=== PATIENT | female | born 1955 | race Caucasian/White ===

== ENCOUNTER → 2018-02-02 07:15 | Outpatient (CLI) | payer BC, SELFPAY ==
[2018-02-02 13:38] LABS: Basophils # 0.1 K/mm3 (0-0.2); Basophils % 0.7 % (0.1-2.0); Eosinophils # 0.3 K/mm3 (0.0-0.4); Eosinophils % 3.7 % (0.1-12.0); Hematocrit 44.3 % (37.0-47.0); Hemoglobin 13.8 g/dL (12.2-16.2); Lymphocytes # 3.2 K/mm3 (0.7-4.5); Lymphocytes % 37.2 K/mm3 (10-50); Mean Corpuscular HGB Conc 31.1 g/dL (31.8-35.4); Mean Corpuscular Hemoglobin 29.5 pg (27.0-31.2); Mean Corpuscular Volume 94.7 fl (81-99); Mean Platelet Volume 7.9 fl (7.4-10.4); Monocytes # 0.4 K/mm3 (0.1-1.0); Neutrophils # 4.6 K/mm3 (1.8-7.8); Neutrophils % 53.4 % (37.0-80.0); Platelet Count 335 K/mm3 (142-424); Red Blood Count 4.67 M/mm3 (4.20-5.40); Red Cell Distribution Width 13.5 % (11.5-17.5); White Blood Count 8.7 K/mm3 (4.8-10.8)
[2018-02-02 13:45] LABS: Albumin Level 3.7 gm/dL (3.4-5.0); Blood Urea Nitrogen 14 mg/dL (7-18); Calcium 10.2 mg/dL (8.5-10.1); Carbon Dioxide 26 mmol/L (21.0-32.0); Chloride 104 mmol/L (98-107); Creatinine,Serum 1.21 mg/dL (0.55-1.02); Estimated Glomerular Filt Rate 45 ml/min (>60); GFR (African American) 55 ML/MIN (>60); Glucose 103 mg/dL (74-106); Phosphorous 2.9 mg/dL (2.4-4.9); Sodium 141 mmol/L (136-145)
== END ==
PROVIDERS: PCP Physician Assistant
DX: N18.9 Chronic kidney disease, unspecified (principal)
CPT/HCPCS: 36415; 80069; 85025

== ENCOUNTER → 2018-02-03 07:02 | Outpatient (CLI) | payer BC, SELFPAY ==
[2018-02-03 07:08] LABS: Microscopic, Urine URINE MICROSCOPIC (MICROSCOPIC)
[2018-02-03 13:57] LABS: Appearance,Urine CLEAR (Clear); Bilirubin,Urine Negative (Negative); Blood, Urine Negative (Negative); Color,Urine YELLOW (Yellow); Glucose,Urine (UA) Negative (Negative); Ketones,Urine Negative (Negative); Leukocyte Esterase,Urine Negative (Negative); Nitrate,Urine Negative (Negative); Protein,Urine Negative (Negative); Specific Gravity, Urine 1.025 (1.005-1.030); Urobilinogen,Urine 0.2 EU/dl (0.2)
[2018-02-03 14:09] LABS: Creatinine,Urine Random 131 mg/dL (20-320); Total Protein,Urine Random 13.8 mg/dL (0.0-11.9)
[2018-02-03 14:16] LABS: Bacteria,Urine 1+ /lpf; Calcium Oxalate Crystals,Urine 1+ /lpf; WBC,Urine Occasional #/hpf (0-3)
== END ==
DX: N18.9 Chronic kidney disease, unspecified (principal)
CPT/HCPCS: 81001; 82570; 84155

== ENCOUNTER → 2018-03-09 14:26 | Outpatient (CLI) | payer BC, SELFPAY ==
--- NOTE | 2018-03-09 14:32 | US_ITS ---
US kidney retroperitoneal comp HISTORY: ITS.REASON: CKD STAGE 3 ORDERING PHYSICIAN: Lillian Joseph PATIENT AGE: 62 years Comparison: None FINDINGS: RIGHT KIDNEY:10 x 3.6 x 6.4 cm. Mild cortical thinning. No hydronephrosis. Unremarkable echogenicity LEFT KIDNEY:11 x 4 x 5.8 cm. Cortical thinning. No hydronephrosis. Unremarkable echogenicity OTHER FINDINGS: No renal mass or perinephric fluid collection bilateral renal blood flow noted IMPRESSION: Bilateral renal cortical thinning. No hydronephrosis
== END ==
PROVIDERS: PCP Physician Assistant; Visit Provider Internal Medicine Nephrology
DX: N18.3 Chronic kidney disease, stage 3 (moderate) (principal)
CPT/HCPCS: 76770

== ENCOUNTER → 2018-04-06 07:05 | Outpatient (CLI) | payer BC, SELFPAY ==
[2018-04-06 07:16] LABS: Microscopic, Urine URINE MICROSCOPIC (MICROSCOPIC)
[2018-04-06 13:34] LABS: Basophils # 0.1 K/mm3 (0-0.2); Basophils % 0.6 % (0.1-2.0); Eosinophils # 0.3 K/mm3 (0.0-0.4); Eosinophils % 3.3 % (0.1-12.0); Hematocrit 40.6 % (37.0-47.0); Hemoglobin 12.8 g/dL (12.2-16.2); Lymphocytes # 2.9 K/mm3 (0.7-4.5); Lymphocytes % 33.3 K/mm3 (10-50); Mean Corpuscular HGB Conc 31.6 g/dL (31.8-35.4); Mean Corpuscular Hemoglobin 28.9 pg (27.0-31.2); Mean Corpuscular Volume 91.3 fl (81-99); Mean Platelet Volume 7.6 fl (7.4-10.4); Monocytes # 0.4 K/mm3 (0.1-1.0); Neutrophils # 4.9 K/mm3 (1.8-7.8); Neutrophils % 57.7 % (37.0-80.0); Platelet Count 347 K/mm3 (142-424); Red Blood Count 4.44 M/mm3 (4.20-5.40); Red Cell Distribution Width 13.9 % (11.5-17.5); White Blood Count 8.5 K/mm3 (4.8-10.8)
[2018-04-06 13:38] LABS: Creatinine,Urine Random 149 mg/dL (20-320); Total Protein,Urine Random 38.4 mg/dL (0.0-11.9)
[2018-04-06 13:43] LABS: Appearance,Urine CLOUDY (Clear); Bilirubin,Urine Negative (Negative); Blood, Urine 1+ (Negative); Color,Urine YELLOW (Yellow); Glucose,Urine (UA) Negative (Negative); Ketones,Urine Negative (Negative); Leukocyte Esterase,Urine 2+ (Negative); Nitrate,Urine POSITIVE (Negative); PH,Urine 5.5 (5.0-8.5); Protein,Urine TRACE (Negative); Specific Gravity, Urine 1.025 (1.005-1.030); Urobilinogen,Urine 0.2 EU/dl (0.2)
[2018-04-06 14:00] LABS: Albumin Level 3.3 gm/dL (3.4-5.0); Anion Gap 12.4 mEq/L (5-15); Blood Urea Nitrogen 18 mg/dL (7-18); Calcium 10.1 mg/dL (8.5-10.1); Carbon Dioxide 28 mmol/L (21.0-32.0); Chloride 107 mmol/L (98-107); Creatinine,Serum 1.18 mg/dL (0.55-1.02); Estimated Glomerular Filt Rate 46 ml/min (>60); GFR (African American) 56 ML/MIN (>60); Glucose 108 mg/dL (74-106); Phosphorous 2.8 mg/dL (2.4-4.9); Potassium 4.4 mmoL/L (3.5-5.1); Sodium 143 mmol/L (136-145)
[2018-04-06 14:07] LABS: Bacteria,Urine 2+ /lpf; WBC,Urine 50-100 #/hpf (0-3)
[2018-04-07 12:49] LABS: Parathyroid Hormone Intact 82 pg/mL (15-65); Vitamin D 25 Hydroxy 15.6 ng/mL (30.0-100.0)
[2018-04-08 03:37] LABS: Immunoglobulin A, Qn 528 mg/dL (87-352); Immunoglobulin G, Qn 1165 mg/dL (700-1600)
[2018-04-08 06:58] LABS: Immunoglobulin M, Qn 53 mg/dL (26-217)
== END ==
PROVIDERS: Visit Provider Hospitalist
DX: N18.9 Chronic kidney disease, unspecified (principal)
CPT/HCPCS: 36415; 80069; 81001; 82570; 82652; 82784; 83970; 84155; 84156; 84165; 85025; 87086; 87088; 87186

== ENCOUNTER → 2021-11-20 11:29 | Outpatient (CLI) | payer BC, SELFPAY ==
[2021-11-20 14:27] LABS: Intact Parathyroid Hormone 119.8 pg/mL (7.5-53.5)
[2021-11-20 14:34] LABS: Magnesium 1.7 mg/dl (1.6-2.3); Phosphorous 2.9 mg/dl (2.5-4.5)
[2021-11-21 17:10] LABS: Calcium, Ionized 6.4 mg/dL (4.5-5.6)
[2021-11-22 17:12] LABS: Calcitonin 43.8 pg/mL (0.0-5.0)
== END ==
PROVIDERS: Visit Provider Nurse Practitioner Family
DX: E83.52 Hypercalcemia (principal)
CPT/HCPCS: 36415; 82308; 82330; 83735; 83970; 84100

== ENCOUNTER 2022-07-29 09:00 | Outpatient (RCR) | payer BC, SELFPAY | END 2022-08-07 11:36 | disposition home or self-care (01) | LOC: PT.CARL 09:00 | PROVIDERS: Visit Provider Orthopaedic Surgery Adult Reconstructive Orthopaedic Surgery | DX: M25.561 Pain in right knee (principal) | CPT/HCPCS: 97010; 97014; 97033; 97110; 97112; 97163; 97164; 97530; G0283 ==

== ENCOUNTER 2022-08-07 08:00 | Outpatient (RCR) | payer BC, SELFPAY ==
--- NOTE | 2022-06-05 10:28 | HMH.PTOPEV ---
PT Outpatient Evaluation Rehab PT Outpatient Evaluation Start: 06/05/22 08:21 Freq: Status: Active Protocol: Document 06/05/22 08:21 ORION (Rec: 06/05/22 10:26 PDESEROUX [id number]) Electronically Signed By Negro Perez, PT 06/05/22 08:21 Outpatient Therapy Subjective History Subjective History Pt. is a 66 year old female who presents to [facility] Outpatient Physical Therapy Services in [place] for the initial evaluation this date( 06/05/22) w/ c's/o chronic and intermittent BLE(L>R) ankle/ ft. P!, weakness, and giving out of insidious onset that has gradually worsened over the last 6 months. Pt. reports symptoms worsen to a sharpness when she ambulates/ stands for a prolonged period time and w/ doing dishes at home. Pt. also reports having trouble negotiating stairs and inclines/declines secondary to P! and instability. Pt. reports having symptom relief w/ resting. Recent diagnostic imaging(radiograph) positive to bilateral osteophytes and possible plantarfasciitis per pt. report. Pt. denies having injections for current complaint. Pt. also reports if Physical Therapy did not provide symptom relief then Dr Pavan Varner would think about taking an MRI of both ankles when RTMD on 06/27/22. Pt. also reports Dr. Varner prescribed her braces to keep ankles in a DF position, but also w/ inserts in her shoes. Pt. reports she is going to [facility] tomorrow( 06/06/22) to have shoes fitted . Current medications include Diclofenac and Lisinopril. PMH includes Hypertension, history of OA, Hysterectomy, Appendectomy. Pt. denies hi
== END 2022-08-07 12:00 | disposition home or self-care (01) ==
LOC: PT 08:00
PROVIDERS: Visit Provider Podiatrist
DX: M76.62 Achilles tendinitis, left leg (principal); M76.61 Achilles tendinitis, right leg; M79.672 Pain in left foot; M79.671 Pain in right foot
CPT/HCPCS: 97010; 97014; 97033; 97035; 97110; 97112; 97163; 97164; G0283

== ENCOUNTER → 2022-09-18 11:03 | Outpatient (CLI) | payer BC, SELFPAY ==
--- NOTE | 2022-09-18 11:08 | MR_ITS ---
FINAL REPORT CLINICAL HISTORY: PAIN IN RIGHT KNEE FINDINGS: Multi planar MR imaging was performed of the left knee. The anterior cruciate ligament is rather gracile. The posterior cruciate ligament is intact. The quadriceps and patellar tendons are intact. There is a large tear in the posterior horn of the medial meniscus. The lateral meniscus is intact. The medial and lateral collateral ligaments appear intact. The medial and lateral retinacula appear intact. There are multiple small osteochondral lesions along the undersurface of the patella., particularly the lateral articular facet of the patella. There is are small cystic structures along the posterior aspect of the joint capsule measuring up to 1.2 cm in greatest dimension, may be related to small ganglion cysts. Finding is best seen on image 23 of series 3 No evidence of soft tissue inflammatory reaction. IMPRESSION: Large tear posterior horn medial meniscus. Multiple osteochondral lesions along the undersurface of the patella. Probable small ganglions as detailed above. Reviewed, Interpreted and Dictated by Arnaud Loco MD Transcribed by Yesenia Moreno Authenticated and [facility]
== END ==
PROVIDERS: PCP Family Medicine; Visit Provider Orthopaedic Surgery Adult Reconstructive Orthopaedic Surgery
DX: M25.561 Pain in right knee (principal)
CPT/HCPCS: 73721

== ENCOUNTER 2023-02-18 13:00 | Outpatient (RCR) | payer BC, SELFPAY | END 2023-02-28 12:15 | disposition home or self-care (01) | LOC: PT 13:00 | PROVIDERS: PCP Family Medicine; Visit Provider Orthopaedic Surgery Adult Reconstructive Orthopaedic Surgery | DX: S83.241D Other tear of medial meniscus, current injury, right knee, subsequent encounter (principal) | CPT/HCPCS: 97010; 97014; 97110; 97163; 97530; G0283 ==

== ENCOUNTER → 2023-06-12 08:47 | Outpatient (CLI) | payer BC, SELFPAY ==
--- NOTE | 2023-06-12 09:00 | XR_ITS ---
FINAL REPORT TECHNIQUE: Bone densitometry calculations of the lumbar spine and left hip were obtained. CLINICAL HISTORY: screening for osteoporosis FINDINGS: Using L1-4, the bone mineral density of the spine is 1.017 g/cm2, corresponding to T-score of -0.3. Using the left hip, the bone mineral density of the femoral neck is 0.853 g/cm2, corresponding to a T-score of -0.7. Using the right hip, the bone mineral density of the femoral neck is 0.783 g/cm2, corresponding to a T-score of -0.6. NOTE: T-score: Standard deviation compared with peak bone mass of young adult mean. *Following the recommendations of the International Society of Bone densitometry, classification of hip BMD is based on the lower of two T-scores; total hip or femoral neck. IMPRESSION: Normal bone mineral density of the lumbar spine and hips. Reviewed, Interpreted and Dictated by Arnaud Loco MD Transcribed by Yesenia Moreno Authenticated and [facility]
[2023-06-12 09:16] LABS: Basophils # 0.1 K/mm3 (0-0.2); Basophils % 0.7 % (0.1-2.0); Eosinophils # 0.2 K/mm3 (0.0-0.4); Eosinophils % 2.2 % (0.1-12.0); Hemoglobin 14.5 g/dL (12.2-16.2); Lymphocytes # 3.3 K/mm3 (0.7-4.5); Lymphocytes % 37.8 % (10-50); Mean Corpuscular HGB Conc 32.1 g/dL (31.8-35.4); Mean Corpuscular Hemoglobin 29.7 pg (27.0-31.2); Mean Corpuscular Volume 92.6 fl (81-99); Mean Platelet Volume 7.8 fl (7.4-10.4); Monocytes # 0.5 K/mm3 (0.1-1.0); Monocytes % 5.4 % (1.7-9.3); Neutrophils # 4.7 K/mm3 (1.8-7.8); Neutrophils % 53.9 % (37.0-80.0); Platelet Count 350 K/mm3 (142-424); Red Blood Count 4.86 M/mm3 (4.20-5.40); Red Cell Distribution Width 14.1 % (11.5-17.5); White Blood Count 8.8 K/mm3 (4.8-10.8)
--- NOTE | 2023-06-12 09:35 | MM_ITS ---
PROCEDURE INFORMATION: Exam: Bilateral Screening 3D Mammography Exam date and time: 06/12/2023 9:03 AM Age: 67 years old Clinical indication: Screening examination TECHNIQUE: Imaging protocol: Bilateral Screening tomosynthesis and 2D mammography including computer-aided detection (CAD) when performed. COMPARISON: Screening-Bilateral Mammography 05/31/2021 11:01 AM FINDINGS: MAMMOGRAPHY: Breast composition: There are scattered areas of fibroglandular density. Mass: None. Architectural distortion: None. Calcifications: No suspicious calcifications. Asymmetric density: None. Skin thickening: None. Axillary adenopathy: None. IMPRESSION: No mammographic evidence of malignancy. Annual screening is recommended unless otherwise clinically indicated. ASSESSMENT: BI-RADS Category 1: Negative
[2023-06-12 10:50] LABS: Alanine Aminotransferase 38 U/L (12-78); Albumin Level 4.5 g/dl (3.5-5.0); Albumin/Globulin Ratio 1.2 (1.1-1.8); Alkaline Phosphatase 144 U/L (38-126); Aspartate Amino Transferase 41 U/L (14-36); Bilirubin,Total 0.6 mg/dl (0.2-1.3); Blood Urea Nitrogen 26 mg/dl (7-17); Calcium 10.8 mg/dl (8.4-10.2); Carbon Dioxide 25 mmol/L (22.0-30.0); Chloride 104 mmol/L (98-107); Estimated Glomerular Filt Rate 38 ml/min (>60); GFR (African American) 45 ML/MIN (>60); Globulin 3.9 g/dL (1.3-3.2); Glucose 121 mg/dl (74-100); Sodium 141 mmol/L (136-145); Total Protein,Serum 8.4 g/dl (6.3-8.2)
[2023-06-12 11:01] LABS: Intact Parathyroid Hormone 141.8 pg/mL (7.5-53.5)
== END ==
PROVIDERS: PCP Family Medicine; Visit Provider Family Medicine
DX: Z12.31 Encounter for screening mammogram for malignant neoplasm of breast (principal); Z78.0 Asymptomatic menopausal state; Z13.820 Encounter for screening for osteoporosis; I10 Essential (primary) hypertension; R73.9 Hyperglycemia, unspecified
CPT/HCPCS: 36415; 77063; 77067; 77080; 80053; 83036; 83970; 85025

== ENCOUNTER → 2023-07-17 17:00 | Outpatient (CLI) | payer BC, SELFPAY | PROVIDERS: PCP Nurse Practitioner Family; Visit Provider Nurse Practitioner Family | DX: R53.81 Other malaise (principal) | CPT/HCPCS: 87086 ==

== ENCOUNTER → 2023-07-29 09:44 | Outpatient (CLI) | payer BC, SELFPAY ==
--- NOTE | 2023-07-29 09:44 | NM_ITS ---
FINAL REPORT CLINICAL HISTORY: Rule out parathyroid adenoma HYPRPARATHYROIDISM FINDINGS: 20.5 mCi Technetium 99-M Sestamibi was administered. Planar imaging was performed early and two-hour delayed of the neck and upper thorax. Early imaging shows physiologic uptake within the upper neck involving the salivary glands and lower neck involving the thyroid gland. On delayed imaging there is a focus of increased activity in the region of the superior pole of the right thyroid worrisome for parathyroid adenoma or hyperplasia. IMPRESSION: Increased activity in the region of the superior pole of the right thyroid worrisome for parathyroid adenoma or hyperplasia. Reviewed, Interpreted and Dictated by Massimo Santos III, MD Transcribed by Paco Calderón Authenticated and [facility]
== END ==
PROVIDERS: PCP Nurse Practitioner Family; Visit Provider Nurse Practitioner
DX: E21.3 Hyperparathyroidism, unspecified (principal); R53.83 Other fatigue; G47.33 Obstructive sleep apnea (adult) (pediatric); R06.83 Snoring
CPT/HCPCS: 78071; A9500; G0399

== ENCOUNTER → 2023-09-22 12:00 | Outpatient (CLI) | payer BC, SELFPAY | PROVIDERS: PCP Family Medicine; Visit Provider Nurse Practitioner Family | DX: R09.81 Nasal congestion (principal) | CPT/HCPCS: 87635 ==

== ENCOUNTER 2024-01-26 08:52 | Outpatient (CLI) | payer BC, SELFPAY ==
--- NOTE | 2024-01-26 09:17 | ECG_ITS ---
APPROVED REPORT Exam: Resting ECG HR:76 bpm ECG Measurements Heart Rate 76 AXES [place] 155 P 55 QRSd 88 QRS -5 QT 373 T 41 QTc 403 Conclusion SINUS RHYTHM LOW QRS VOLTAGE IN PRECORDIAL LEADS [QRS DEFLECTION < 1.0 mV IN CHEST LEADS] BORDERLINE ECG UNCONFIRMED REPORT Electronically signed by : Escobar Jameson MD 01/26/2024 14:06:34
[2024-01-26 09:41] LABS: Basophils # 0.1 K/mm3 (0-0.2); Basophils % 0.9 % (0.1-2.0); Eosinophils # 0.2 K/mm3 (0.0-0.4); Eosinophils % 1.9 % (0.1-12.0); Hematocrit 43.3 % (37.0-47.0); Hemoglobin 13.6 g/dL (12.2-16.2); Lymphocytes # 2.3 K/mm3 (0.7-4.5); Lymphocytes % 27.4 % (10-50); Mean Corpuscular HGB Conc 31.4 g/dL (31.8-35.4); Mean Corpuscular Hemoglobin 30.2 pg (27.0-31.2); Mean Corpuscular Volume 96.2 fl (81-99); Mean Platelet Volume 7.8 fl (7.4-10.4); Monocytes # 0.4 K/mm3 (0.1-1.0); Monocytes % 4.9 % (1.7-9.3); Neutrophils # 5.5 K/mm3 (1.8-7.8); Platelet Count 385 K/mm3 (142-424); Red Cell Distribution Width 14.1 % (11.5-17.5); White Blood Count 8.5 K/mm3 (4.8-10.8)
[2024-01-26 11:58] LABS: Alanine Aminotransferase 29 U/L (12-78); Albumin/Globulin Ratio 1.2 (1.1-1.8); Alkaline Phosphatase 144 U/L (38-126); Anion Gap 11.9 mEq/L (5-15); Aspartate Amino Transferase 33 U/L (14-36); Bilirubin,Total 0.4 mg/dl (0.2-1.3); Blood Urea Nitrogen 19 mg/dl (7-17); Calcium 10.6 mg/dl (8.4-10.2); Carbon Dioxide 29 mmol/L (22.0-30.0); Chloride 106 mmol/L (98-107); Estimated Glomerular Filt Rate 55 ml/min (>60); GFR (African American) 67 ML/MIN (>60); Globulin 3.3 g/dL (1.3-3.2); Glucose 105 mg/dl (74-100); Potassium 3.9 mmoL/L (3.5-5.1); Sodium 143 mmol/L (136-145); Total Protein,Serum 7.3 g/dl (6.3-8.2)
== END 2024-01-26 23:59 ==
LOC: RT 08:55
PROVIDERS: PCP Family Medicine; Visit Provider Otolaryngology
DX: Z01.818 Encounter for other preprocedural examination (principal)
CPT/HCPCS: 36415; 80053; 85025; 93005

== ENCOUNTER 2024-02-06 16:30 | Outpatient (CLI) | payer BC, SELFPAY ==
[2024-02-06 17:55] LABS: Intact Parathyroid Hormone 170.9 pg/mL (7.5-53.5)
== END 2024-02-06 23:59 | disposition home or self-care (01) ==
LOC: LAB 16:30
PROVIDERS: PCP Family Medicine; Visit Provider Otolaryngology
DX: Z01.818 Encounter for other preprocedural examination (principal)
CPT/HCPCS: 36415; 83970

== ENCOUNTER 2024-02-10 18:00 | Outpatient (CLI) | payer BC, SELFPAY ==
[2024-02-10 16:21] LABS: Coronavirus 19, PCR Not Detected (NotDetected); Influenza A, PCR Not Detected (NotDetected); Influenza B, PCR Not Detected (NotDetected)
== END 2024-02-10 23:59 | disposition home or self-care (01) ==
LOC: LAB.DROPOF 02-11 07:54
PROVIDERS: PCP Family Medicine; Visit Provider Family Medicine
DX: J01.90 Acute sinusitis, unspecified (principal); R05.9 Cough, unspecified
CPT/HCPCS: 87636

== ENCOUNTER 2024-03-10 11:31 | Outpatient (CLI) | payer BC, SELFPAY ==
[2024-03-10 12:21] LABS: Calcium 11.1 mg/dl (8.4-10.2)
== END 2024-03-10 23:59 | disposition home or self-care (01) ==
LOC: LAB 11:32
PROVIDERS: PCP Family Medicine; Visit Provider Nurse Practitioner
DX: E21.3 Hyperparathyroidism, unspecified (principal); R79.89 Other specified abnormal findings of blood chemistry
CPT/HCPCS: 36415; 82310

== ENCOUNTER 2024-06-15 11:07 | Outpatient (CLI) | payer BC, SELFPAY | END 2024-06-15 23:59 | disposition home or self-care (01) | LOC: LAB 11:08 | PROVIDERS: PCP Family Medicine; Visit Provider Otolaryngology | DX: Z98.890 Other specified postprocedural states (principal); Z90.89 Acquired absence of other organs; R39.9 Unspecified symptoms and signs involving the genitourinary system; N39.0 Urinary tract infection, site not specified | CPT/HCPCS: 36415; 82330; 83970; 87086 ==

== ENCOUNTER 2024-07-01 13:39 | Outpatient (CLI) | payer BC, SELFPAY ==
--- NOTE | 2024-07-01 13:43 | MM_ITS ---
PROCEDURE INFORMATION: Exam: MG Bilateral Screening 3D Mammography Exam date and time: 07/01/2024 1:56 PM Age: 68 years old Clinical indication: Screening examination TECHNIQUE: Imaging protocol: Bilateral Screening tomosynthesis and 2D mammography including computer-aided detection (CAD) when performed. COMPARISON: 1. MG MM DIG SCREENING MAMM BI W/CAD 06/12/2023 9:03 AM 2. MG Screening-Bilateral Mammography 05/31/2021 11:01 AM FINDINGS: MAMMOGRAPHY: Breast composition: There are scattered areas of fibroglandular density. Mass: None. Architectural distortion: None. Calcifications: No suspicious calcifications. Asymmetric density: None. Skin thickening: None. Axillary adenopathy: None. IMPRESSION: No mammographic evidence of malignancy. Annual screening is recommended unless otherwise clinically indicated. ASSESSMENT: BI-RADS Category 1: Negative.
== END 2024-07-01 23:59 | disposition home or self-care (01) ==
LOC: RAD 13:40
PROVIDERS: PCP Family Medicine; Visit Provider Family Medicine
DX: Z12.31 Encounter for screening mammogram for malignant neoplasm of breast (principal)
CPT/HCPCS: 77063; 77067

== ENCOUNTER 2025-04-25 10:19 | Outpatient (CLI) | payer BC, SELFPAY ==
[2025-04-25 17:24] LABS: Hematocrit 41.6 % (37.0-47.0); Hemoglobin 13.0 g/dL (12.2-16.2); Immature Granulocytes % 0.3 %; Mean Corpuscular HGB Conc 31.3 g/dL (31.8-35.4); Mean Corpuscular Hemoglobin 28.4 pg (27.0-31.2); Mean Corpuscular Volume 90.8 fl (81-99); Nucleated Red Blood Cells % 0 %; Platelet Count 370 K/mm3 (142-424); Red Blood Count 4.58 M/mm3 (4.20-5.40); Red Cell Distribution Width-SD 47.6 fL; White Blood Count 10.1 K/mm3 (4.8-10.8)
[2025-04-25 18:29] LABS: Alanine Aminotransferase 21 U/L (12-78); Albumin Level 4.4 g/dl (3.5-5.0); Anion Gap 19.7 mEq/L (5-15); Aspartate Amino Transferase 29 U/L (14-36); Bilirubin,Total 0.6 mg/dl (0.2-1.3); Blood Urea Nitrogen 13 mg/dl (7-17); Calcium 8.7 mg/dl (8.4-10.2); Carbon Dioxide 26 mmol/L (22.0-30.0); Chloride 100 mmol/L (98-107); Creatinine,Serum 1.00 mg/dl (0.52-1.04); Estimated Glomerular Filt Rate 55 ml/min (>60); GFR (African American) 67 ML/MIN (>60); Globulin 3.2 g/dL (1.3-3.2); Glucose 83 mg/dl (74-100); Potassium 4.7 mmoL/L (3.5-5.1); Sodium 141 mmol/L (136-145); Total Protein,Serum 7.6 g/dl (6.3-8.2)
[2025-04-25 18:30] LABS: Albumin/Globulin Ratio 1.4 (1.1-1.8); Alkaline Phosphatase 130 U/L (38-126); Cholesterol 162 mg/dl (140-200); HDL Cholesterol 44 mg/dl (40-60); Triglycerides 162 mg/dl (30-150)
[2025-04-25 18:57] LABS: Hepatitis C Ab Qual. W/ RFX NEGATIVE (Negative)
[2025-04-25 18:59] LABS: Thyroid Stimulating Hormone 1.90 uIU/mL (0.465-4.68)
--- OUTSIDE RECORDS SUMMARY | 2025-04-26 09:51 | XMS_ITS | Clinical Summary ---
Author Organization Healthcare Address [address] [place] [address] Care Team Providers Care Senior Maintenance Mechanic Name Role Phone Nikolay Chloé Lopez APRN Primary Care Provider [phone]- [phone] Allergies No known active allergies Medications allopurinol (Zyloprim) 300 MG tablet 2 Active lisinopril 40 MG tablet 2 Active Blood Glucose Monitoring Suppl (Blood Glucose Monitor System) w/Device kit Please provide meter and strips compatible with patient's insurance 1 kit 2 Active Lancets misc Use 1-2x/day as directed 60 each 5 2 Active glucose blood test strip 1-2x/day, Please provide strips compatible with patient's meter and insurance 60 each 5 2 Active Active Problems Problem Noted Date Diagnosed Date Pre-diabetes 02/14/2022 Class 2 severe obesity due t o excess calories with serious comorbidity and body mass index (BMI) of 38.0 to 38.9 in adult 02/14/2022 Hypertension 02/14/2022 Family History Medical History Relation Name Comments Arthritis Father Kidney disease Mother Breast cancer Sister Cancer Sister Relation Name Status Comments Father Mother Sister Social History Tobacco Use Types Packs/Day Years Used Date Smoking Tobacco: Never Smokeless Tobacco: Never Alcohol Use Standard Drinks/Week Comments Yes 0 (1 standard drink = 0.6 oz pur e alcohol) social Comments Unknown Sex and Gender Information Value Date Recorded Sex Assigned at Not on file Legal Sex Female 6:56 PM EDT Gender Identity Not on file Sexual Orientation Not on file Last Filed Vital Signs Vital Sign Reading Time Taken Comments Blood Pressure 154/82 02/14/2022 7:50 AM EDT Pulse 90 02/14/2022 7:50 AM EDT Temperature - - Respiratory Rate - - Oxygen Saturation - - Inhaled Oxygen Concentration - - Weight 126 kg (278 lb 14.1 oz) 02/14/2022 7:50 A M EDT Height 180.3 cm (5' 11 ) 02/14/2022 7:50 AM EDT Body Mass Index 38.9 02/14/2022 7:50 AM EDT Plan of Treatment Health Maintenance Due Date Last Done Comments [facility]-Bone Density Scan 1955 [facility]-Depression Screening 1955 [facility]-Infant/Child/Adol SDOH Screenings 1955 [facility]- SDOH Screenings 1973 [facility]-Adult SDOH Screenings 1973 [facility]-DTaP,Tdap,and Td Vaccine s (1 - Tdap) 1974 CT Colonography 2000 Colonoscopy 2000 FIT-DNA 2000 FIT 2000 FOBT 2000 Sigmoidoscopy 2000 [facility]-Colorectal Cancer Screening 2000 [facility]-Pneumococcal Vaccine: 50 + Years (1 of 1 - PCV) 2005 [facility]-Zoster Vaccines (1 of 2) 2005 [id number] Vaccine (4 - 2023- season) 2024 10/30/2021, 01/11/2021, 12/14/2020 [facility]-Influenza Vaccine (#1) 2025 [facility]-RSV Vaccine: 60+ Years o r (1 - 1-dose 75+ series) 2030 [facility]-Diabetes: Hemoglobin A1C Discontinued 02/14/2022 HPV Vaccines Aged Out No longer eligi ble based on patient's age to complete this topic [facility]-HIB Vaccines Aged Out No longer e ligible based on patient's age to complete this topic [facility]-Hepatitis A Vaccines Aged Out No longer eligible based on patient's age to complete this topic [facility]-IPV Vaccines Aged Out No longer e ligible based on patient's age to complete this topic [facility]-Rotavirus Vaccines Aged Out No lo nger eligible based on patient's age to complete this topic Procedures Procedure Name Priority Date/Time Associated Diagnosis Comments POCT GLYCOSYLATED HEMOGLOBIN (HGB A1C) Routine 02/14/2022 8:16 AM EDT Pre-diabetes from Last 3 Months or Most Recently Relevant to Health Maintenance Results * POCT glycosylated hemoglobin (Hb A1C) docked device (02/14/2022 8:16 AM EDT) POCT Hemoglobin A1C 6.0 4.4-6.6 % % [facility] Kit Lot Number n/a [facility] - [facility] Kit Expiration Date n/a [facility] Blood Venous blood specimen / Unknown 02/14/2022 8:16 AM EDT Dawn Richards TELESALES REPRESENTATIVE POINT OF CARE TEST ENTER/ED IT ORDERABLES Final Result Performing Organization Address City/State/[facility] Co de Phone Number [facility] [address] [place] [phone] from Last 3 Months or Most Recently Relevant to Health Maintenance [place] [address] [place] [address] MEDICARE Care Teams Senior Maintenance Mechanic Relationship Specialty Start Date End Date Chloé Link, JENSEN [address] [place] [address] PCP - General 12/05/21
[2025-04-27 09:14] LABS: Hepatitis B Surface Antigen Negative (Negative)
== END 2025-04-25 23:59 | disposition home or self-care (01) ==
LOC: LAB.DROPOF 04-26 09:50
PROVIDERS: PCP Nurse Practitioner Family; Visit Provider Nurse Practitioner Family
DX: I10 Essential (primary) hypertension (principal); Z11.4 Encounter for screening for human immunodeficiency virus [HIV]; Z11.59 Encounter for screening for other viral diseases; R79.89 Other specified abnormal findings of blood chemistry
CPT/HCPCS: 80053; 80061; 84443; 85025; 86803; 87340; 87389

== ENCOUNTER 2025-07-21 07:51 | Outpatient (CLI) | payer BC, SELFPAY ==
--- OUTSIDE RECORDS SUMMARY | 2025-07-21 07:53 | XMS_ITS | Clinical Summary ---
Author Organization Healthcare Address [address] [place] [address] Care Team Providers Care Assistant Elementary Teacher Name Role Phone Nikolay Chloé Lopez APRN Primary Care Provider [phone]- [phone] Allergies No known active allergies Medications allopurinol [...] 2005 [facility]-Zoster Vaccines (1 of 2) 2005 [id number]-57 Vaccine (4 - 2024- season) 2025 10/30/2021, 01/11/2021, 12/14/2020 [facility]-Influenza Vaccine (#1) 2025 [...] Hemoglobin A1C 6.0 4.4-6.6 % % [facility] Kit Lot Number n/[id number] [id number] [facility] Kit Expiration Date n/a [facility] Blood Venous blood specimen / Unknown 02/14/2022 8:16 AM EDT Dawn Richards SUPPORT SERVICES REP POINT OF CARE TEST ENTER/ED IT ORDERABLES Final Result Performing Organization Address City/State/[facility] Co de Phone Number [facility] [address] [place] [phone] from Last 3 Months or Most Recently Relevant to Health Maintenance [place] [address] [address] MEDICARE Care Teams Assistant Elementary Teacher Relationship Specialty Start Date End Date Chloé Link, JENSEN [address] [place] [address] PCP - General 12/05/21
--- OUTSIDE RECORDS SUMMARY | 2025-07-21 07:53 | XMS_ITS | Clinical Summary ---
[facility] Organization [facility] Address [address] [place] [address] Care Team Providers Care Cementer Hand Name Role Phone Provider, No Known Primary Care Provider Unavail able Allergies No known active allergies Medications lisinopril (PRINIVIL,ZESTRI L) 20 MG tablet Take 20 mg by mouth Daily. 11/01/2019 Active ibuprofen (ADVIL,MOTRIN) 800 MG tabletIndication s:Right acute serous otitis media, recurrence not specified Take 1 tablet by mouth Every 8 (Eight) Hours As Needed for Mild Pain . 90 tablet 11/08/2019 Active Active Problems No known active problems Immunizations Immunization Administration Dates Next Due COVID-19 (MODERNA) 1st,2nd,3rd Dose Monovalent 0 01/11/2021,12/14/2020 Social History Tobacco Use Types Packs/Day Years Used Date Smoking Tobacco: Never Alcohol Use Standard Drinks/Week Comments Not Asked 0 (1 standard drink = 0.6 oz pur e alcohol) rarely AUDIT-C Answer Date Recorded Frequency of Alcohol Consumption Never 11/08/2019 Average Number of Drinks Not on file 020 Frequency of Binge Drinking Not on file 10/21 Abuse Screen Answer Date Recorded Unsafe at Home or Work/School Not on file Feels Threatened by Someone? Not on file 09/2023 Does Anyone Keep You from Co ntacting Others or Doint Things Outside the Home? Not on file 07/31/2023 Physical Sign of Abuse Present Not on file 1 Housing Stability Answer Date Recorded Current Living Arrangements Not on file 07/20 Potentially Unsafe Housing Conditions Not on camilo e 07/31/2023 Family and Community Support Answer Armando e Recorded Help with Day-to-Day Activities Not on file 07/31/2023 Lonely or Isolated Not on file 07/31/2023 Employment Answer Date Recorded Do you want help finding or keeping work or a nico b? Not on file 07/31/2023 Disabilities Answer Date Recorded Concentrating, Remembering, or Making Decisions Difficulty Not on file 07/31/2023 Doing Errands Independently Difficulty Not on fi le 07/31/2023 Education Answer Date Recorded Help with school or training? Not on file Preferred Language Not on file 07/31/2023 Comments No Sex and Gender Information Value Date Recorded Sex Assigned at Not on file Legal Sex Female 3:58 PM EST Gender Identity Not on file Sexual Orientation Not on file Last Filed Vital Signs Vital Sign Reading Time Taken Comments Blood Pressure 142/78 11/08/2019 4:25 PM EST Pulse 74 11/08/2019 4:25 PM EST Temperature 36.9 C (98.4 F) 11/08/2019 4:25 PM EST Respiratory Rate 16 11/08/2019 4:25 PM EST Oxygen Saturation 98% 11/08/2019 4:25 PM EST Inhaled Oxygen Concentration - - Weight 113 kg (250 lb) 11/08/2019 4:25 PM EST Height 180.3 cm (5' 11 ) 11/08/2019 4:25 PM EST Body Mass Index 34.87 11/08/2019 4:25 PM EST Plan of Treatment Health Maintenance Due Date Last Done Comments DXA SCAN 1955 TDAP/TD VACCINES (1 - Tdap) 1974 MAMMOGRAM 1995 COLOGUARD 2000 COLON CANCER SCREENING 5 YEA R SIGMOIDOSCOPY 2000 COLONOSCOPY [address] CANCER SCREENING 2000 CT COLONOGRAPHY 2000 FECAL OCCULT BLOOD TEST 2000 FIT Testing (1 year) 2000 Pneumococcal Vaccine 50+ (1 of 1 - PCV) 2005 ZOSTER VACCINE (1 of 2) 2005 ANNUAL PHYSICAL 11/08/2019 HEPATITIS C SCREENING 11/08/2019 INFLUENZA VACCINE 05/20/2025 COVID-19 Vaccine ( season) 2025, 12/14/2020 Insurance PPO Care Teams Cementer Hand Relationship Specialty Start Date End Date Provider, No Known [facility] [place] [address] PCP - General 11/08/19
--- OUTSIDE RECORDS SUMMARY | 2025-07-21 07:53 | XMS_ITS | Data Portability ---
Author Organization [facility], [place] [facility] Address [address] [place] [address] Care Team Providers Care Student Services Vice President Name Role Phone [facility] Primary Care Provider YUMIKO CAREY Primary Care Provider Assessment Encounter Date Assessment Date Assessment LastModified by Organization Details LastModified Time 04/23/2024 04/23/2024 PREOPERATIVE DIAGNOSIS: Primary hyperparathyroidism. POSTOPERATIVE DIAGNOSIS: Primary hyperparathyroidism. PROCEDURE: Parathyroidectomy with intraoperative nerve integrity monitoring with needle EMG of the recurrent laryngeal nerve. ANESTHESIA: General. COMPLICATIONS: None. 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 SURGEON: Taz Mehta MD INDICATIONS: The patient has primary hyperparathyroidism and preoperative sestamibi scan indicates probable location is the superior pole of the right thyroid. The above was recommended and informed consent was obtained. OPERATIVE NOTE: The patient was brought to the operating room and after adequate general anesthesia, the neck was prepped and draped in the usual sterile fashion, and the nerve integrity monitoring electrodes were placed to monitor the recurrent laryngeal nerves bilaterally. Then, an incision was made overlying the palpable thyroid gland and carried through the underlying platysma and subplatysmal flaps were elevated superiorly and inferiorly and then the strap muscles were divided at midline and self-retaining retractors were applied. The right thyroid lobe was identified and dissection was performed around the thyroid capsule with attention drawn to the superior pole. The middle thyroid vein was isolated and ligated and divided using LigaSure and then the right thyroid lobe was rotated and retracted medially and then dissection was performed in the tracheoesophageal groove. At the mid pole near the posterior suspensory ligament, a suspected parathyroid adenoma was identified and the PTeye probe was calibrated and then used to confirm that this was the likely parathyroid adenoma and then dissection was performed around the capsule of the hypercellular parathyroid gland, dissecting it from the tracheoesophageal groove and inferior thyroid gland. Dissection was performed using a nerve stimulator to avoid injury to the recurrent laryngeal nerve. Hemostasis was established with LigaSure and bipolar cautery and the specimen was sent for frozen section analysis. Frozen section confirmed hypercellular parathyroid gland. The wound was irrigated with normal saline and then wound closure was accomplished with 4-0 Vicryl to reapproximate the strap muscles and platysma layer and then 5-0 nylon to reapproximate the skin edges. A sterile dressing was placed and the procedure was concluded. All counts were correct. Blood loss was minimal and the patient was sent to the recovery room in stable condition. [email or web address] Not available 04/24/2024 09:13:13 Plan of Treatment Reminders Order Date Submit Date Provider Last Modified By Organization Details Last Modified Time Details Appointments None recorded. Lab calcium, serum or plasma 2023 024 [facility], [address] [place] [address], [phone], 4 16:25:33 PTH (parathyr oid hormone), intact + calcium, serum or plasma 2023 024 [facility], [address] [place] [address], [phone], 4 18:12:12 PTH (parathyr oid hormone), intact + calcium, serum or plasma 2022 023 [facility], [address] [place] [address], [phone], 3 18:07:25 Referral ENT surgery referral 2022 023 [email or web address] Mehta MD, [address] , [place] [address], [place], [address], 3 13:46:14 Procedures None recorded. Surgeries None recorded. Imaging None recorded. Medication Orders None recorded. Patient TargetsNo targets recorded. Patient Instructions Encounter Date Encounter Id Patient Instructions Last Modified By Organization Details Last Modified Time 09/29/2023 [id number] 1. Reviewed and discussed results of parathyroid scan from 07/29/2023 with patient. 2. Reviewed and discussed results of PTH and calcium levels from 06/12/2023 with patient. 3. Discussed parathyroidectomy in office today. Full risks, complications, and benefits of operative versus non-operative intervention have been thoroughly discussed. Understanding was expressed, informed consent given, and we will proceed with the discussed operative treatment plan. There were no questions for me at the end of the office visit. 4. PTH, intact with Ca ordered in office today. 5. Follow up postoperatively. [email or web address] Not available 09/29/2023 10:13:23 He has primary hyperparathyroidism and I want to repeat her PTH and serum calcium but I also reviewed recent sestamibi scan which shows a probable parathyroid adenoma at the superior pole on the right side. We discussed parathyroidectomy along with risks benefits and alternatives and she wishes to proceed. Surgery will be scheduled in the near future. Not available 09/29/2023 10:18:29 03/17/2024 [id number] 1. Recommended Parathyroidectomy procedure Full risks, complications, and benefits of operative versus non-operative intervention have been thoroughly discussed. Understanding was expressed, informed consent given, and we will proceed with the discussed operative treatment plan. There were no questions for me at the end of the office visit. 2. Keep scheduled surgical date: 04/23/24 3. F/u p/o keep 04/26/24 post op appointment date [email or web address] Not available 03/17/2024 10:08:16 She is scheduled for parathyroidectomy in April as her initial surgery had to be rescheduled because of an acute upper respiratory illness. She is feeling well. Recent PTH was 170. Recent calcium was 11.2. Previous sestamibi scan shows probable adenoma right side superior pole. We again discussed rationale for surgery as well as risks benefits and alternatives and she wished to proceed. Not available 03/17/2024 10:11:27 04/26/2024 [id number] 1. Ordered PTH a nd Ca blood testing 2. Continue to wash surgical incision as directed. 3. Return to driving when off pain meds and neck stiffness has subsided 4. F/u in 1 month @ [facility] for final wound check [email or web address] Not available 04/26/2024 10:44:42 She is doing wel l after parathyroidectomy. Final path is pending. Her wound is healing nicely without evidence of hematoma, seroma, or infection. She will have her sutures removed later this week and I will see her once more in 1 month. PTH and serum calcium levels will be checked today. [email or web address] Not available 04/26/2024 10:46:48 Reason for Referral ENT Surgery Referral for Diana hiram hyperparathyroidism Referring Physician: Mihaela Gamboa, Endocrinology, Encounter Date: 08/14/2023 Results Created Date Observation Date Name Description Value Unit Range Abnormal Flag Note LastModifiedBy Organization Detail LastModifiedTime 09/29/20 23 09/29/2023 PTH, INTAC T WITH CA PTH, intact 92.0 pg/mL 15.0-6 5.0 high INTER PRETI VE GUIDE ===== ===== ===== ===== ===== ===== ===== ===== ===== ===== ===== === PTH CALCI UM CONDI TION ===== ===== ===== ===== ===== ===== ===== ===== ===== ===== ===== = Divina l Divina l Divina l Parat hyroi d _ Low or Low Hypop debby yroid ism Low Divina l _ Divina l or High Prima ry Hyper parat hyroi dism High __ High Divina l or Secon valdez Hyper parat hyroi dism Low __ High High Terti vadim Hyper parat hyroi dism __ Low or High Non-P debby yroid Hyper calce ashley Low Divina l ===== ===== ===== ===== ===== ===== ===== ===== ===== ===== ===== ==== Not Available [facility] [address] [place] [address], [phone], 09/29/2023 18:32:24 09/29/20 23 09/29/2023 PTH, INTAC T WITH CA calcium 10.4 mg/dL 8.6-10 .2 high Not Available [facility] [address] [place], [address], 09/29/2023 18:32:24 04/23/20 24 04/23/2024 PTH, RAPID PTH, rapid 84.0 pg/mL 15.0-6 5.0 high Not Available [facility] [address] [place] [address], [phone], 04/23/2024 08:54:28 04/23/20 24 04/23/2024 SURGI TRISTA surgical SEE BELOW normal Depar tment of Patho logy Surgi trista Patho logy Repor t NAME: FLOYD PIMENTEL PATH. :[id number] Copy to: Diagn osis: Right super ior parat hyroi d: Benig n hyper cellu lar parat hyroi d consi stent with adeno ma (0.91 2 g). SOURC E OF SPECI MEN: PARAT HYROI D, RIGHT SUPER IOR (FROZ EN) CLINI TRISTA INFOR MATIO N: PRIMA RY HYPER PARAT HYROI DISM Gross Descr iptio n: Recei lory fresh label ed with the patie nt's name and desig nated righ t super ior parat hyroi d is a 0.912 g, 1.7 x 1.3 x 1.0 cm pink soft tissu e. The tissu e is bisec rachel. Touch preps are obtai kathryn, and the large st half is submi tted for froze n secti on in block AFSA. The remai cheri tissu e is submi tted for perma nents in a singl e casse tte label ed A1. SB 04/23 02:49 PM Intra opera tive Consu ltati on: A) TP/FS DX: Hyper cellu lar parat hyroi d tissu e. (DBC) . Resul ts given direc tly to Dr. Isela hay. Micro scopi c Descr iptio n: A micro scopi c exami natio n has been perfo rmed and the resul t(s) are as noted above . ANNE PABON MD Rylee d Out Date: 04/26 13:06 Page 1 of 1 Not Available [facility] [address], [place], [address], 04/26/2024 13:06:43 04/27/20 24 04/27/2024 PTH, INTAC T WITH CA PTH, intact 46.0 pg/mL 15.0-6 5.0 normal INTER PRETI VE GUIDE ===== ===== ===== ===== ===== ===== ===== ===== ===== ===== ===== === PTH CALCI UM CONDI TION ===== ===== ===== ===== ===== ===== ===== ===== ===== ===== ===== = Divina l Divina l Divina l Parat hyroi d _ Low or Low Hypop debby yroid ism Low Divina l _ Divina l or High Prima ry Hyper parat hyroi dism High __ High Divina l or Secon valdez Hyper parat hyroi dism Low __ High High Terti vadim Hyper parat hyroi dism __ Low or High Non-P debby yroid Hyper calce ashley Low Divina l ===== ===== ===== ===== ===== ===== ===== ===== ===== ===== ===== ==== Not Available [facility] [address] [place], [address], 04/27/2024 18:12:16 04/27/20 24 04/27/2024 PTH, INTAC T WITH CA calcium 9.8 mg/dL 8.6-10 .2 normal Not Available [facility] [address] [place], [address], 04/27/2024 18:12:16 04/27/20 24 04/28/2024 CALCI UM calcium 9.8 mg/dL 8.6-10 .2 normal Not Available [facility] [address] [place], [address], 04/28/2024 16:25:33 02/09/20 24 01/26/2024 elect rocar diogr am No observ ation record ed. [email or web address] Not Available 02/09 10:31:31 04/19/20 24 07/29/2023 NM, sesta mibi scan No observ ation record ed. BARCODE Not Available 2023 17:13:33 Result Notes None recorded. Problems No Known Problems Procedures Surgical History Date Name Laterality Status Provider Name and Address Organization Details Recorded Time Appendectomy completed [facility] 09/29/2023 09:13:03 hysterectomy completed [facility] 09/29/2023 09:13:09 repair of joint of right knee completed [facility] 09/29/2023 09:13:49 Imaging Results None recorded. Procedure Notes None recorded. Medical Equipment None Reported. Allergies No known drug allergies Medications Name Sig Start Date Stop Date Status Note LastModified by Organization Details LastModified Time lisinopril 20 mg tablet Take 1 tablet every day by oral route. active Not Available Not Available No t Available hydrocodone 7.5 mg-acetamino phen 325 mg tablet TAKE 1 TABS PO EVERY 6-8 HOURS PRN PAIN 2023 active Not Available Not Available Not Avai lable cephalexin 500 mg capsule Take 1 capsule 3 times a day by oral route for 7 days. 2023 active Not Available Not Available Not Avai lable allopurinol 300 mg tablet Take 1 tablet every day by oral route. 03/17 completed Not Available Not Available Not Available ondansetron 4 mg disintegrati ng tablet TAKE 1 TAB NEEDED EVERY 8 HOURS FOR NAUSEA 2023 active Not Available Not Available Not Avai lable Vitals Date Recorded Body height Body mass index (BMI) Body weight Heart rate Systolic And Diastolic Provider Name and Address Organization Details Last Updated DateTime 03/17/2024 180.34 cm 37.1 kg/m2 525467.9 7 g 81 /min 145/81 mm[Hg] Nissalakshmi Niño [facility] 03/17/2024 09:37:06 Date Recorded Body height Body mass index (BMI) Body weight Heart rate Systolic And Diastolic Provider Name and Address Organization Details Last Updated DateTime 04/26/2024 180.34 cm 37.7 kg/m2 265741.7 4 g 79 /min 160/78 mm[Hg] Shannan Durham [facility] 04/26/2024 10:06:02 Date Recorded Body weight Body mass index (BMI) Body height Heart rate Systolic And Diastolic Provider Name and Address Organization Details Last Updated DateTime 08/14/2023 411200.2 g 36.5 kg/m2 180.34 cm 96 /min 135/79 mm[Hg] Malena Danielsette [facility] 08/14/2023 15:21:12 Date Recorded Body height Body mass index (BMI) Body weight Body temperature Heart rate Systolic And Diastolic Provider Name and Address Organization Details Last Updated DateTime 3 180.34 cm 37.8 kg/m2 101112. 53 g 98.7 [degF] 83 /min 141/86 mm[Hg] Elisabeth Chanel [facility] 3 09:11:57 Social History None recorded. Functional Status Question Answer Note LastModified by Organizat ion Details LastModified Time What is your level of alcohol consumption? Occasional [email or web address] Information not available 09/29/2023 Mental Status None recorded. Family History Relationship Description Onset Age of this Age Resolved Age Notes LastModified by Organization Details LastModified Time Mother Hypertensive disorder [email or web address] Not available 2022 09:11:32 Mother Asthma [email or web address] Not available 09/29/2023 09:12:09 Mother Kidney disease [email or web address] Not available 2022 09:12:31 Medical History No medical history recorded. Gynecological HistoryNo gynecological history recorded. Obstetrics History GPAL:G 0 P 0 0 0 0 Past Encounters Encounter ID Performer Location Encounter Start Date Encounter Closed Date Diagnosis/Indication Diagnosis SNOMED-CT Code Diagnosis ICD10 Code Diagnosis IMO Codes Diagnosis Note [id number] MIHAELA GAMBOA MD [facility]CR[facility] [address] [place] [address] 08/14/2023 14:51:51 08/15/2023 07:53:51 Primary hyperparathyroidism 54508846 E21.0 E83.52 New consultati on PTH mediated hypercalce ashley due to primary hyperparat hyroidismC linically reported nonspecifi c symptoms which is unlikely to be related to her calcium level being mildly elevatedUn remarkable physical examLabora tory work-up on 06/12/2023, 06/12/2023 ionized calcium 6.4, calcium 10.8, calcitonin 43.8, and PTH intact 141.8.Para thyroid scan on 07/29/2023 showed findings suggestive of right superior parathyroi d adenomaIn the office today had a discussion with patient about primary hyperparat hyroidism pathophysi ology i.e. single versus multiple gland disease, deleteriou s complicati ons in the form of increased risk of osteoporos is, low trauma fractures, kidney stones and chronic kidney disease. We discussed today the fact that the only chance for permanent cure as to proceed with parathyroi dectomy, and she verbalized understand ing and she is interested in pursuing a surgical treatment. We initially discussed further localizati on using 4-dimensio nal CT at , but given the fact that she has a positive parathyroi d scan and she would like to proceed with surgery as soon as possible before the end of the year, I will refer her to ENT Dr. Mehta for parathyroi dectomy evaluation . Patient verbalized understand ing and agreed with the above mentioned plan of care. I would like to thank Gissel Dinero Aprn for the opportunit y to participat e in the care of this patient. [id number] MD MAYRA URIAS ENT [address] [place] [address] 09/29/2023 08:52:53 09/29/2023 10:21:58 Primary hyperparathyroidism 15605530 E21.0 [id number] MD MAYRA URIAS ENT [address] [place] [address] 03/17/2024 09:17:47 03/17/2024 10:58:40 Primary hyperparathyroidism 33329180 E21.0 [id number] MD MAYRA URIAS [address]NT [address] [place] [address] 04/26/2024 09:57:24 04/26/2024 16:44:20 Primary hyperparathyroidism 56591278 E21.0 -S/p Parathyroi dectomy with intraopera tive nerve integrity monitoring with needle EMG of the recurrent laryngeal nerve performed on 04/23/24 [id number] TAZ MEHTA MD SURGERY SCHEDULE [address] [place] [address] 04/23/2024 08:17:08 04/23/2024 08:17:35 Health Concerns Section Related Observation LastModified by Organization Detai ls LastModified Time None Recorded Concern Status LastModified by Organization Details LastModified Time None Recorded Advance Directives Directive None Recorded Payers Insurance Date Sequence Insurance Name Policy Number Policy Morfin Covered Member ID Morfin Member ID Guarantor Name 01/19/2024 1 [employer] [id number] Floyd [id number] Floyd Herrera 04/26/2024 1 [employer] [id number] Floyd Herrera [id number] Floyd Herrera Notes Date Note Type Note Provider Name and Address Organization Details Recorded Time 3 text/html 68-year-old female patient with a past medical history as detailed in the problem is significant for hypertension, hyperuricemia seen today for hyperparathyroidism ablation further management. Requesting provider: Gissel Todd found to have elevated PTH and calcium on laboratory work-up. She denies any history of osteoporosis clinically Normal bone density No history of kidney stones She reported fatigue and diffuse body aching, difficulty concentrating and poor memory Referred to ENT who requested further evaluation by endocrinology MIHAELA GAMBOA MD [address] [place] [address], [phone], [facility] 08/14/2023 17:27:37 3 text/html Floyd is a 68 year old female who comes in today for an evaluation of her primary hyperparathyroidism. She had a parathyroid scan performed on 07/29/2023 which showed increased activity in the region of the superior pole of the right thyroid worrisome for parathyroid adenoma or hyperplasia. Her latest bloodwork performed in May showed that her PTH levels were high at 141.8 and her calcium levels were normal at 10.8. TAZ MEHTA [facility] [place], [address] 09/29/2023 10:18:44 4 text/html Floyd visits us in office today to follow up on her hyperparathyroidism. Pt was scheduled to have a parathyroidectomy in early February, but a strong deep cough prevented Pt for going through with surgery. The cough and upper respiratory infection has since been treated and is no longer an issue. Pt's new surgery date is scheduled for 04/23/24. Pt is currently asymptomatic in regard to her hyperparathyroidism, but future complications due to increased PTH will likely present in the future. TAZ MEHTA MD [address] [place] [address], [phone], [facility] 03/17/2024 10:11:39 4 text/html Floyd visits us in office today S/p Parathyroidectomy with intraoperative nerve integrity monitoring with needle EMG of the recurrent laryngeal nerve performed on 04/23/24. Pt is swallowing normally post op with minor soreness present in the throat. TAZ MEHTA MD [address] [place] [address], [phone], [facility] 04/26/2024 10:46:55 OBGyn Episode No OBEpisode recorded.
--- NOTE | 2025-07-21 08:00 | MM_ITS ---
PROCEDURE INFORMATION: Exam: MG Bilateral Screening 3D Mammography Exam date and time: 07/21/2025 8:03 AM Age: 70 years old Clinical indication: Screening examination TECHNIQUE: Imaging protocol: Bilateral Screening tomosynthesis and 2D mammography including computer-aided detection (CAD) when performed. COMPARISON: 1. MG MM DIG SCREENING MAMM BI W/CAD 07/01/2024 1:56 PM 2. MG MM DIG SCREENING MAMM BI W/CAD 06/12/2023 9:03 AM FINDINGS: MAMMOGRAPHY: Breast composition: There are scattered areas of fibroglandular density. Mass: None. Architectural distortion: None. Calcifications: No suspicious calcifications. Asymmetric density: None. Skin thickening: None. Axillary adenopathy: None. IMPRESSION: No mammographic evidence of malignancy. Annual screening is recommended unless otherwise clinically indicated. ASSESSMENT: BI-RADS Category 1: Negative.
== END 2025-07-21 23:59 | disposition home or self-care (01) ==
LOC: RAD 07:51
PROVIDERS: PCP Family Medicine; Visit Provider Family Medicine
DX: Z12.31 Encounter for screening mammogram for malignant neoplasm of breast (principal); R92.323 Mammographic fibroglandular density, bilateral breasts
CPT/HCPCS: 77063; 77067